=== PATIENT | male | born 1960 | race African-American/Black ===

== ENCOUNTER 2018-07-05 14:22 | Emergency (ER) | payer OTHER ==
[~2018-07-05] VITALS: Ht 170.2 cm; Wt 71.7 kg
[2018-07-05 14:23] VITALS: BP 123/80
== END 2018-07-05 18:10 | disposition home or self-care (01) ==
LOC: ER 14:22
DX: Z53.21 Procedure and treatment not carried out due to patient leaving prior to being seen by health care provider (principal)